=== PATIENT | male | born 1955 ===

== ENCOUNTER 2021-07-06 02:13 | Emergency (ER) | payer MEDICARE, MEDICAID ==
--- NOTE | 2021-07-06 04:53 | ED General ---
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 oz. kg; BMI Method: Progress/Results/Core Measures Suspected Sepsis SIRS Temperature: Pulse: Respiratory Rate: Blood Pressure / Mean: Results/Orders Lab Results Laboratory Tests Test 07/06/21 02:22 Range/Units Influenza Type A (RT-PCR) Not Detected Not Detecte Influenza Type B (RT-PCR) Not Detected Not Detecte SARS-CoV-2 RNA (RT-PCR) Detected H Not Detecte My Orders Orders - CHAVEZ MARROQUIN MD Covid 19 Inhouse Test (07/06/21 02:19) Influenza A And B By Pcr (07/06/21 02:19) Vital Signs/I&O Capillary Refill : Departure Impression Primary Impression: COVID-19 Disposition: 01 HOME, SELF-CARE Condition: Stable Departure-Patient Inst. Decision time for Depature: 04:51 Referrals: [facility] (PCP/Family) Primary Care Physician Patient Instructions: COVID-19 Overview, Sotrovimab FDA Fact Sheet Add. Discharge Instructions: Drink plenty of clear liquids to stay well-hydrated. You may take Tylenol (acetaminophen) and/or ibuprofen if needed for pain or fever. If possible, obtain a pulse oximeter and check your oxygen saturations frequently, especially when feeling short of breath. If you have repeated oxygen saturations less than 92% or any oxygen saturation less than 90%, return to the ER. Maintaining good general health is important during COVID-19. You should take a multivitamin daily. The hospital pharmacy may have monoclonal antibody therapy (Sotrovimab) available for you. If a treatment is available, the pharmacy will contact you to schedule an infusion time at the hospital. Please read the fact sheet about this medication attached. Call with questions or concerns. Return to the ER if you have worsening symptoms. All discharge instructions reviewed with patient and/or family. Voiced understanding. Copy Copies To 1: JIM CLINE JOSHUA T MD Jul 06, 2021 04:53
[2021-07-06 05:11] VITALS: BP 163/89
== END 2021-07-06 05:10 | disposition home or self-care (01) ==
LOC: ER 02:15
DX: U07.1 COVID-19 (principal); I10 Essential (primary) hypertension
CPT/HCPCS: 87636

== ENCOUNTER 2021-10-28 14:25 | Outpatient (RCR) | payer MEDICARE, MEDICAID ==
[2021-10-26 13:05] VITALS: BP 156/94
--- NOTE | 2021-10-26 13:58 | Diagnostic Imaging Report ---
INDICATION: Preop for knee replacement surgery. TIME OF EXAM: 1:49 PM. FINDINGS: The heart size is normal. The right hemidiaphragm is elevated. The lungs appear to be clear. No infiltrates are seen. There is no effusion or pneumothorax. IMPRESSION: Elevated right hemidiaphragm. The study is otherwise unremarkable. Dictated by: Dictated on workstation # [id number]
[2021-10-26 14:09] LABS: BILIRUBIN,URINE NEGATIVE (NEGATIVE); CLARITY,URINE CLEAR; COLOR,URINE YELLOW; GLUCOSE, URINE (UA) NEGATIVE (NEGATIVE); KETONES,URINE NEGATIVE (NEGATIVE); LEUKOCYTE ESTERASE ,URINE NEGATIVE (NEGATIVE); NITRITE,URINE NEGATIVE (NEGATIVE); PH,URINE 5.5 (5-9); PROTEIN,URINE NEGATIVE (NEGATIVE)
[2021-10-26 14:12] LABS: BASOPHILS % (AUTO) 1 % (0-10); EOSINOPHILS # (AUTO) 0.3 10^3/uL (0.0-0.3); EOSINOPHILS % (AUTO) 5 % (0-10); HEMATOCRIT 42 % (40-54); LYMPHOCYTES # (AUTO) 1.5 10^3/uL (1.0-4.0); LYMPHOCYTES % (AUTO) 25 % (12-44); MEAN CORPUSCULAR HEMOGLOBIN 28 pg (25-34); MEAN CORPUSCULAR HGB CONC 34 g/dL (32-36); MEAN CORPUSCULAR VOLUME 84 fL (80-99); MEAN PLATELET VOLUME 9.3 fL (9.0-12.2); MONOCYTES # (AUTO) 0.5 10^3/uL (0.0-1.0); MONOCYTES % (AUTO) 8 % (0-12); NEUTROPHILS # (AUTO) 3.6 10^3/uL (1.8-7.8); NEUTROPHILS % (AUTO) 61 % (42-75); PLATELET COUNT 186 10^3/uL (130-400); WHITE BLOOD COUNT 5.9 10^3/uL (4.3-11.0)
[2021-10-26 14:22] LABS: BACTERIA,URINE NEGATIVE /HPF; WBC,URINE RARE /HPF
[2021-10-26 14:23] LABS: HYALINE CASTS, URINE RARE /LPF
[2021-10-26 14:34] LABS: ERYTHROCYTE SEDIMENTATION RATE 20 MM/HR (0-30)
[2021-10-26 14:35] LABS: ALBUMIN 4.3 GM/DL (3.2-4.5)
[2021-10-26 14:36] LABS: POTASSIUM 4.7 MMOL/L (3.6-5.0)
[2021-10-26 14:37] LABS: CALCIUM 9.8 MG/DL (8.5-10.1)
[2021-10-26 14:38] LABS: TOTAL PROTEIN 7.6 GM/DL (6.4-8.2)
[2021-10-26 14:40] LABS: BILIRUBIN,TOTAL 0.7 MG/DL (0.1-1.0)
[2021-10-26 14:42] LABS: CREATININE SERUM 1.02 MG/DL (0.60-1.30)
[~2021-10-28] VITALS: Ht 160 cm
[~2021-10-28 14:25] MED LIST: LISI20TA26 PO; NAPR-915 PO; PANT40TA52 PO; TMSL.4C PO
[2021-10-28 15:10] LABS: PROTHROMBIN TIME PATIENT 13.6 SEC (12.2-14.7)
[2021-11-06] MEDS ORDERED: OXYC1TAB87 PO (07:01)
== END 2021-11-24 | disposition home or self-care (01) ==
LOC: PREOP 14:25
PROVIDERS: ATTEND Orthopaedic Surgery
DX: Z01.818 Encounter for other preprocedural examination (principal); J98.6 Disorders of diaphragm
CPT/HCPCS: 36415; 71046; 80053; 81000; 82308; 82310; 85025; 85610; 85652; 86850; 86900; 86901; 87081; 93005

== ENCOUNTER 2021-11-04 05:55 | Inpatient (IN) | payer MEDICARE, MEDICAID ==
--- NOTE | 2021-10-26 13:09 | HISTORY AND PHYSICAL ---
DATE OF SERVICE: ADMISSION HISTORY AND PHYSICAL This will be for inpatient admission on 11/04/2021 for left total knee arthroplasty. The patient will require regular inpatient admission due to need for pain management, physical therapy and gait abnormalities. HISTORY OF PRESENT ILLNESS: The patient is a 66-year-old gentleman with longstanding progressive left knee pain. He had previously undergone an injection, which only provided temporary relief of symptoms. Radiographs reveal severe medial and patellofemoral arthrosis. Due to activity limitations and progressive loss of function, the patient has elected to proceed with surgical intervention. REVIEW OF SYSTEMS: No chest pain, no shortness of breath, no dysuria. PAST MEDICAL HISTORY: Hypertension and prostate. PAST SURGICAL HISTORY: None. SOCIAL HISTORY: The patient is retired. The patient denies alcohol, tobacco use. FAMILY HISTORY: Unknown. PRIMARY CARE PROVIDER: Dr. Mcclain. MEDICATIONS: Pantoprazole, Naprosyn, lisinopril. ALLERGIES: No known drug allergies. PHYSICAL EXAMINATION: GENERAL: The patient is well-developed, well-nourished, in no acute distress. HEENT: Normocephalic, atraumatic. Pupils are equal, round and reactive to light. Oropharynx is clear. NECK: Supple, with no lymphadenopathy. LUNGS: Clear to auscultation bilaterally. HEART: Regular rate and rhythm. ABDOMEN: Soft, nontender, nondistended. EXTREMITIES: The patient ambulates with an antalgic gait on the left. He has a slight effusion. There is varus alignment noted. He is tender along his medial femoral condyle, range of motion is 0/2/130. There is no varus valgus laxity. Negative anterior and posterior drawer. IMPRESSION: Severe left knee osteoarthritis. PLAN: Left total knee arthroplasty. The risks, benefits, options, ramifications and recovery have been discussed at length with the patient. He understands and wishes to proceed. Job ID: [id number] DocumentID: [id number] Dictated Date: 10/26/2021 12:50:01 Channel Executive Date: 10/26/2021 13:07:58 Dictated By: KELLY FAIRCHILD MD
[~2021-11-04] VITALS: Ht 160 cm; Wt 75.0 kg
[2021-11-04] VITALS (12 sets, daily range): BP systolic 99–168; BP diastolic 58–92
[2021-11-04] MEDS ORDERED: fentaNYL INJ 100 MCG/2 ML AMP ONE (06:50)
[2021-11-04] MEDS ORDERED: LIDOCAINE PF 2% 5 ML (XYLOCAINE) VIAL ONE (06:50)
[2021-11-04] MEDS ORDERED: MIDAZOLAM 2 MG/2 ML (VERSED) VIAL ONE (06:51)
[2021-11-04] MEDS ORDERED: GLYCOPYRROLATE 0.2 MG/ML (ROBINUL) 2 ML VIAL ONE (07:09)
[2021-11-04] MEDS ORDERED: ROCURONIUM 50 MG/5 ML (ZEMURON) VIAL IV ONE (07:09)
[2021-11-04] MEDS ORDERED: ONDANSETRON 4 MG/2 ML (SDV) Z0FRAN ONE (07:09)
[2021-11-04] MEDS ORDERED: proPOfol 200 MG/20 ML (DIPRIVAN) VIAL IV ONE (07:09)
[2021-11-04] MEDS ORDERED: TRANEXAMIC ACID 100 MG/ML 10 ML INJECTION ONE (07:09)
[2021-11-04] MEDS ORDERED: NEOSTIGMINE 3 MG/3 ML VIAL ONE (07:10)
[2021-11-04] MEDS: LACTATED RINGERS 1,000 ML IV PRN ×2 (07:17→08:10)
[2021-11-04] MEDS ORDERED: ONDANSETRON 4 MG/2 ML (SDV) Z0FRAN IVP PRN ×2 (07:30→09:30)
[2021-11-04] MEDS ORDERED: morphine PCA 100 MG/100 ML BAG IV PRN (07:30)
[2021-11-04] MEDS ORDERED: NALOXONE 0.4 MG/ML 1 ML (NARCAN) VIAL IV PRN (07:30)
[2021-11-04] MEDS ORDERED: INTRA-ARTICULAR IU ONE ×5 (07:30)
[2021-11-04] MEDS ORDERED: diphenhydrAMINE 50 MG/ML INJ (BENADRYL) IVP PRN (07:30)
[2021-11-04] MEDS ORDERED: CEFUROXIME 1,500 MG/NS 50 ML IVPB IV ONE ×2 (07:30)
--- NOTE | 2021-11-04 07:34 | Progress Note-Pre Operative ---
Pre-Operative Progress Note H&P Reviewed The H&P was reviewed, patient examined and no changes noted. Date Seen by Provider: November 04, 2021 Time Seen by Provider: 07:22 Date H&P Reviewed: November 04, 2021 Time H&P Reviewed: 07:11 Pre-Operative Diagnosis: left knee primary osteaoarthritis KELLY FAIRCHILD MD November 04, 2021 07:34
--- NOTE | 2021-11-04 07:35 | Progress Note-Post Operative ---
Post-Operative Progess Note Surgeon (s)/Interpreter Translator (s) Surgeon KELLY FAIRCHILD MD Interpreter Translator: Yfn Romo Pre-Operative Diagnosis left knee primary osteaoarthritis Post-Operative Diagnosis left knee primary osteaoarthritis Procedure & Operative Findings Date of Procedure 11/04/21 Procedure Performed/Findings left total knee arthroplasty Anesthesia Type GETA Estimated Blood Loss Estimated blood loss (mL): minimal Specimens/Packing Specimens Removed none Packing: none KELLY FAIRCHILD MD November 04, 2021 07:35
--- NOTE | 2021-11-04 07:39 | D/C HH Face to Face Order ---
D/C Face to Face Orders Reconcile Patient Problems Problems Reviewed?: Yes Instructions for Patient Via Belkis [place], Patient Instructions/FollowUp: three weeks Physician to follow Patient: three weeks Discharge Diet for Home: Regular Diet Patient Data-Allergies,Ht & Wt Patient Allergies: Coded Allergies: No Known Drug Allergies (Unverified , 10/26/21) Home Health Need/Face to Face Date of Face to Face: November 04, 2021 Clinical Findings: Muscle weakness, Pain with ambulation, Unsteady gait I have seen Pt jitg-km-rtld: Yes Discharged To: Home Diagnosis/Conditions: left total knee arthroplasty Patient is Homebound due to: Muscle weakness, Pain w/ambulation Homebound Status Due to the above stated illness, injury or surgical procedure (medical condition or diagnosis) and associated clinical findings, the patient is homebound because of his/her inability to leave home except with aid of a supportive device and/or person AND leaving the home requires a considerable and taxing effort or is medically contraindicated. Pt req the following assistanc: Walker Home Health Nursing Orders Home Health Services Order: Physical Therapy-Evaluate & Treat DC left knee pedrito and apply steri strips 11/18/21 Home Health Infusion Therapy Line Start Date: November 04, 2021 Therapy Orders Therapy Orders: Physical Therapy, PT to assess for OT Therapy Specific Orders: Eval assistive deivces, Teach enviro modifications/safety, Gait training, Increase strength/endurance, Provider maintenance therapy, Restore ROM Certify Stmt I certify that this patient is under my care and that I, a nurse practitioner or a physician; a licensed nursing assistant working with me, had a face to face encounter that - meets the physician face to face encounter requirements with this patient as dated. KELLY FAIRCHILD MD November 04, 2021 07:39
[2021-11-04] MEDS ORDERED: ROPIVACAINE 5MG/ML 30ML VIAL ONE (08:52)
[2021-11-04] MEDS ORDERED: HYDROmorphone 2 MG/ML VIAL (DILAUDID) ONE (08:57)
[2021-11-04] MEDS ORDERED: SEVOFLURANE (ULTANE) 15 ML INHAL SOLN ONE (09:22)
[2021-11-04] MEDS ORDERED: morphine INJ 10 MG/ML 1ML (SYR OR VIAL) IVP ONE (09:30)
[2021-11-04] MEDS ORDERED: HYDROmorphone 2 MG/ML VIAL (DILAUDID) IV ONE (09:30)
--- NOTE | 2021-11-04 09:49 | Progress Note ---
Standard Progress Note Progress Notes/Assess & Plan Date Seen by a Provider: November 04, 2021 Time Seen by a Provider: 09:44 Progress/Assessment & Plan no complaints radiographs--HW well positioned without fracture LLE--2 plus DP pulse with brisk cap refill s/p LTKA mobilize as able KELLY FAIRCHILD MD November 04, 2021 09:49
[2021-11-04] MEDS: SENNA W/DOCUSATE (SENOKOT S) TABLET PO SCH ×2 (11:15→19:32)
[2021-11-04] MEDS: NS IV 1000 ML 1,000 ML IV SCH (11:15)
--- NOTE | 2021-11-04 12:14 | Diagnostic Imaging Report ---
INDICATION: Pain, postsurgical follow-up. COMPARISON: None available. TECHNIQUE: Two radiographs of the left knee dated 11/04/2021. FINDINGS: Recent placement of a left total knee arthroplasty with postsurgical subcutaneous emphysema and surgical skin clips in place. No evidence of immediate hardware complication. No acute fracture or dislocation. No destructive osseous process. No suspicious radiopaque foreign body. IMPRESSION: Recent placement of a left total knee arthroplasty without evidence of immediate hardware complication or suspicious radiopaque foreign body. Dictated by: Dictated on workstation # [id number]
--- NOTE | 2021-11-04 14:14 | OPERATIVE REPORT ---
DATE OF SERVICE: 11/04/2021 PREOPERATIVE DIAGNOSIS: Left knee primary osteoarthritis. POSTOPERATIVE DIAGNOSIS: Left knee primary osteoarthritis. PROCEDURE: Left total knee arthroplasty. SURGEON: Corey Fairchild MD SPECIAL EDUCATION TEACHING ASSISTANT: Yfn Romo, who assisted throughout the procedure and closed the incision. ANESTHESIA: General endotracheal by Dr. Chou. TOURNIQUET TIME: Approximately 60 minutes at 300 mmHg. ESTIMATED BLOOD LOSS: Minimal. DRAINS: None. COMPLICATIONS: None. POSTOPERATIVE PLAN: Routine total knee protocol. The patient was transferred to the recovery room awake and stable condition. MATERIALS: Microport cemented size 3 femur, cemented size 3 tibia with a 10 mm insert and cemented size 29 patellar button. STATEMENT OF MEDICAL NECESSITY: The patient is a 66-year-old gentleman with longstanding progressive left knee pain. Radiographs revealed severe medial and patellofemoral arthrosis. He has undergone treatment with injections, anti-inflammatories and rest without relief. Due to functional impairment and failure to improve with conservative measures, the patient elected to proceed with surgical intervention. DESCRIPTION OF PROCEDURE: After risks and benefits of procedure were discussed and questions were answered, an informed consent was signed and placed on chart, the operative site was confirmed in the preoperative holding area initialed by the surgeon. The patient was then transferred to the operating room. After adequate levels of general endotracheal anesthetic were obtained, a timeout was called, confirming the operative site. The left lower extremity was prepped and draped in the usual sterile fashion with the leg elevated and the knee flexed, and tourniquet was inflated to 300 mmHg. Standard anterior approach was utilized. Hemostasis was obtained with cautery. Medial parapatellar arthrotomy was performed leaving 1 cm cuff on the patella for later reattachment. Portion of fat pad was resected. The ACL was resected. The intramedullary guide was passed into the femoral canal. The distal cutting block was placed. Distal cut was made, the femur sized to a size 3. The 3 cutting block was placed parallel to the epicondylar axis and cuts were made from posterior to anterior. The subperiosteal release was then performed and posterior distal femur being careful to stay on the bony surface. The intramedullary guide was then passed into the tibia. The cutting block was placed. The drop nisreen transected the intermalleolar axis. The cut was made. The three baseplate was placed and had excellent coverage. Drop nisreen transected the intermalleolar axis. This was then prepared with a drill and keel punch. The femoral trial was placed, and trochlear cut was made. The patella was then prepared by resecting 10 mm off the undersurface. The peg guide was placed, and the peg holes were drilled. The 29 trial button was placed. Knee was taken through range of motion. Full extension was easily obtained, 130 degrees of flexion was obtained with gravity. The patella tracked well. There was no anterior/posterior or medial/lateral laxity in flexion or extension. The trials were removed. The joint was irrigated with pulse lavage. The bone ends were irrigated and dried. The periarticular block was placed in the posterior capsule, medial and lateral retinaculum extensor mechanism, subcutaneous tissues. Bone ends were further irrigated and dried. The tibial baseplate was cemented into position. Excessive cement was removed, the superior surface was irrigated and dried and the polyethylene insert was placed. Distal femur was irrigated and dried. The femoral prosthesis was cemented into position. Excessive cement was removed. The knee was brought out into full extension until cement had cured. The undersurface of the patella, irrigated and dried and the patellar button was cemented into position. Excessive cement was removed. Once the cement had cured, the knee was taken through range of motion. Full extension was easily obtained, 130 degrees of flexion was obtained with gravity. The patella tracked well. There was no anterior/posterior or medial/lateral laxity in flexion or extension. The joint was further irrigated with pulse lavage. Arthrotomy was closed with #2 Tevdek in jmkmxb-cm-fvdug interrupted fashion. The knee was flexed. The repair was stable, and the patella tracked well. Subcutaneous tissues were irrigated with pulse lavage, using a total of 6 liters throughout the procedure. A 0 Vicryl was used to deep subcutaneous layer, 2-0 Vicryl for the superficial subcutaneous layer, pedrito used on the skin. A soft dressing was applied. The patient was transferred to the recovery room awake and in stable condition. Job ID: [id number] DocumentID: [id number] Dictated Date: 11/04/2021 09:10:58 Payroll Lead Date: 11/04/2021 14:13:56 Dictated By: COREY FAIRCHILD MD
--- NOTE | 2021-11-04 14:30 | Physical Therapy Evaluation ---
PT Evaluation-General Medical Diagnosis Admission Date November 04, 2021 at 05:55 Medical Diagnosis: s/p L knee Arthroplasty Onset Date: November 04, 2021 Therapy Diagnosis Therapy Diagnosis: Impaired mobility, strength Weight Bear Status Right Lower Extremity: Right Full Weight Bearing Left Lower Extremity: Left Weight Bearing/Tolerated Referral Physician: Demetrius Reason for Referral: Evaluation/Treatment Medical History Pertinent Medical History: HTN Additional Medical History Hypertension and prostate. Reviewed History: Yes Social History unable to assess due to communication barrier. Prior Prior Level of Function SCALE: Activities may be completed with or without assistive devices. 2-Gfszbmspbx-nxddtzy completes the activity by him/herself with no assistance from a helper. 5-Set-up or Clean-up Assistance-helper sets up or cleans up; patient completes activity. [place] assists only prior to or following the activity. 4-Supervision or Touching Assistance-helper provides verbal cues and/or touching/steadying and/or contact guard assistance as patient completes activity. Assistance may be provided throughout the activity or intermittently. 3-Partial/Moderate Assistance-helper does LESS THAN HALF the effort. [place] lifts, holds or supports trunk or limbs, but provides less than half the effort. 2-Substantial/Maximal Assistance-helper does MORE THAN HALF the effort. [place] lifts or holds trunk or limbs and provides more than half the effort. 5-Qaqwllkxu-ufnhmg does ALL the effort. Patient does none of the effort to com plete the activity. Or, the assistance of 2 or more helpers is required for the patient to complete the activity. If activity was not attempted, code reason: 7-Patient Refused. 9-Not Applicable-not attempted and the patient did not perform the activity before the current illness, exacerbation or injury. 10-Not Attempted due to Environmental Limitations-(lack of equipment, weather restraints, etc.). 88-Not Attempted due to Medical Conditions or Safety Concerns. unable to assess due to communication barrier PT Evaluation-Current Subjective Patient was in bed upon entering. Patient explained that his japanese is not very good, so PT used demonstrations, japanese to best ability, and google translate to communicate. Pain Numeric Pain Scale: 0-No Pain Pt/Family Goals To be independent at home. Objective Patient Orientation: Person, Place, Situation ROM/Strength ROM Lower Extremities Knee flexion 50d. knee extension lacking about 5-10d. Hip and ankle ROM appear WFL Integumentary/Posture Bowel Incontinence: No Bladder Incontinence: No Sensory Vision: Functional Hearing: Functional Sensation Right Lower Extremit: Intact Sensation Left Lower Extremity: Intact Transfers Roll Left to Right (QC): 6 Sit to Lying (QC): 5 Lying to Sitting/Side of Bed(Q: 5 Sit to Stand (QC): 4 (CGA) Chair/Ale-lm-Zccva Xfer(QC): 4 (CGA) Toilet Transfer (QC): 4 (CGA) Gait Does the Patient Walk?: Yes Mode of Locomotion: Walk Anticipated Mode of Locomotion: Walk Walk 10 feet (QC): 4 (CGA) Distance: 20' Gait Assistive Device: FWW Comments/Gait Description Relatively normal gait pattern Balance Sitting Static: Normal Sitting Dynamic: Normal Standing Static: Good Standing Dynamic: Good Treatment ambulation, transfer, toileting, LE strengthening (quad set, heel slides, ankle pumps, SAQ, SLR) 10 reps each. Assessment/Needs Patient did very well today, showed decent ROM with knee, but is still lacking f lexion and extension. Patient states he is in no pain at the moment and was able to tolerate standing and weight bearing on L LE without difficulty. Patient was independent with bed mobility, and just needs help setting up to go from sit<- >lying. Patient was able to walk to bathroom and transfer onto toilet with CGA. Patient was left in bathroom with instructions to pull red cord for assistance when finished. 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 Residential Goals PT Residential Goals Time Frame: November 11, 2021 Roll Left & Right (QC): 6 Sit to Lying (QC): 6 Lying-Sitting on Side/Bed(QC): 6 Sit to Stand (QC): 6 Chair/Nli-db-Xektf Xfer(QC): 6 Toilet Transfer (QC): 6 Walk 10 feet (QC): 6 Walk 50ft with 2 Turns (QC): 6 Walk 150 ft (QC): 6 PT Plan Problem List Problem List: Activity Tolerance, Functional Strength, Safety, Balance, Gait, Transfer, Bed Mobility, ROM Treatment/Plan Treatment Plan: Continue Plan of Care Treatment Plan: Bed Mobility, Education, Functional Activity George, Functional Strength, Gait, Safety, Therapeutic Exercise, Transfers Treatment Duration: November 11, 2021 Frequency: 11 times per week Estimated Hrs Per Day: .25 hour per day Patient and/or Family Agrees t: Yes Safety Risks/Education Patient Education: Gait Training, Transfer Techniques, Reviewed Precautions, Correct Positioning, Safety Issues Teaching Recipient: Patient Teaching Methods: Demonstration, Discussion Response to Teaching: Verbalize Understanding, Return Demonstration, Reinforcement Needed Discharge Recommendations Plan To work on strengthening, ROM, transfers, ambulation, to return to independence at home. Therapy Discharge Recommendati: Home & Family, Post Acute PT Time/GCodes Time In: 1307 Time Out: 1330 Total Billed Treatment Time: 23 Total Billed Treatment 1 visit LUCY 10' FA 13' JOVANI JERONIMO PT November 04, 2021 14:30
[2021-11-04] MEDS: CEFUROXIME INJECTION 750 MG in NS (IVPB) 50 ML IV SCH (16:09)
[2021-11-04] MEDS: TAMSULOSIN 0.4 MG (FLOMAX) CAP PO SCH (19:52)
[2021-11-05] VITALS: BP 147/84
[2021-11-05] MEDS: NS IV 1000 ML 1,000 ML IV SCH ×2 (00:06→08:02)
[2021-11-05] MEDS: CEFUROXIME INJECTION 750 MG in NS (IVPB) 50 ML IV SCH (00:06)
[2021-11-05 04:28] VITALS: BP 135/77
[2021-11-05 05:47] LABS: HEMOGLOBIN 12.6 g/dL (13.3-17.7)
[2021-11-05] MEDS: MULTIVIT W/MINERALS TAB (THERAGRAN M) PO SCH (06:32)
[2021-11-05 07:55] VITALS: BP 164/82
[2021-11-05] MEDS: lisINopril 20 MG (PRINIVIL) TABLET PO SCH (08:01)
[2021-11-05] MEDS: oxyCODONE/APAP 5/325MG (PERCOCET 5) TABLET PO PRN ×3 (08:01→13:38)
[2021-11-05] MEDS: SENNA W/DOCUSATE (SENOKOT S) TABLET PO SCH ×2 (08:02→21:56)
[2021-11-05] MEDS: ENOXAPARIN INJECTION 30 MG/0.3 ML SYR SC SCH ×2 (08:02→21:56)
--- NOTE | 2021-11-05 08:03 | Progress Note ---
Standard Progress Note Progress Notes/Assess & Plan Date Seen by a Provider: November 05, 2021 Time Seen by a Provider: 08:02 Progress/Assessment & Plan no complaints radiographs--HW well positioned without fracture LLE--2 plus DP pulse with brisk cap refill s/p LTKA mobilize as able Final Diagnosis no complaints Vital Signs Date Time Temp Pulse Resp B/P (MAP) Pulse Ox O2 Delivery O2 Flow Rate FiO2 11/05/21 07:55 36.8 74 20 164/82 (109) 98 Room Air 11/05/21 04:28 36.8 79 18 135/77 (96) 97 Room Air 11/05/21 00:00 36.6 98 18 147/84 (105) 99 Room Air 11/04/21 21:00 Room Air 11/04/21 19:44 36.3 62 18 168/80 (109) 95 Room Air 11/04/21 15:33 36.3 62 18 137/71 (93) 96 Room Air 11/04/21 12:45 Room Air 11/04/21 11:19 90 Room Air 0.00 11/04/21 11:12 35.8 72 18 131/74 (93) 90 Room Air 11/04/21 10:42 35.5 84 16 126/65 (85) 93 Room Air 11/04/21 10:00 36.7 16 132/71 (91) 96 Room Air 11/04/21 10:00 Room Air 11/04/21 09:50 Room Air 11/04/21 09:50 16 129/68 (88) 97 Room Air 11/04/21 09:40 14 126/71 (89) 98 OxyMask 2 11/04/21 09:40 OxyMask 2 11/04/21 09:30 14 115/64 (81) 98 OxyMask 10 11/04/21 09:30 OxyMask 6 11/04/21 09:20 14 110/61 (77) 98 OxyMask 10 11/04/21 09:20 OxyMask 6 11/04/21 09:08 OxyMask 10 11/04/21 09:08 37.5 12 99/58 (72) 97 OxyMask 10 I & O 11/05/21 07:00 Intake Total 2050 ml Output Total 1025 ml Balance 1025 ml Laboratory Tests Test 11/05/21 05:30 Range/Units Hemoglobin 12.6 L 13.3-17.7 g/dL Hematocrit 37 L 40-54 % LLE-dressing intact. Intact DF and PF of toes and ankle sensation intact throughout no calf tenderness s/p LTKA PT/OT KELLY FAIRCHILD MD November 05, 2021 08:03
[2021-11-05] MEDS ORDERED: lisINopril 40 MG (PRINIVIL) TABLET PO SCH (09:00)
--- NOTE | 2021-11-05 09:50 | Physical Therapy Daily Note ---
PT Daily Note-Current Subjective Patient agrees to PT. Mental Status Patient Orientation: Normal For Age Attachments: IV Transfers SCALE: Activities may be completed with or without assistive devices. 8-Ouqyvlstda-ljuwkyr completes the activity by him/herself with no assistance from a helper. 5-Set-up or Clean-up Assistance-helper sets up or cleans up; patient completes activity. [place] assists only prior to or following the activity. 4-Supervision or Touching Assistance-helper provides verbal cues and/or touching/steadying and/or contact guard assistance as patient completes activity. Assistance may be provided throughout the activity or intermittently. 3-Partial/Moderate Assistance-helper does LESS THAN HALF the effort. [place] lifts, holds or supports trunk or limbs, but provides less than half the effort. 2-Substantial/Maximal Assistance-helper does MORE THAN HALF the effort. [place] lifts or holds trunk or limbs and provides more than half the effort. 4-Wwfcvpril-cifcwx does ALL the effort. Patient does none of the effort to complete the activity. Or, the assistance of 2 or more helpers is required for the patient to complete the activity. If activity was not attempted, code reason: 7-Patient Refused. 9-Not Applicable-not attempted and the patient did not perform the activity before the current illness, exacerbation or injury. 10-Not Attempted due to Environmental Limitations-(lack of equipment, weather restraints, etc.). 88-Not Attempted due to Medical Conditions or Safety Concerns. Lying to Sitting/Side of Bed(Q: 6 Sit to Stand (QC): 4 Chair/Dsp-sh-Ukxti Xfer(QC): 4 Weight Bearing Right Lower Extremity: Right Full Weight Bearing Left Lower Extremity: Left Weight Bearing/Tolerated Gait Training Distance: 200' Walk 10 feet (QC): 4 Walk 50 ft with 2 Turns(QC): 4 Walk 150 ft (QC): 4 Gait Assistive Device: FWW reciprocal pattern/slightly antalgic Exercises Supine Ex: Ankle pumps, Quad Set, Heel Slides, Straight leg raise Supine Reps: 15 Seated Therapy Exercises: Long arc quads Seated Reps: 15 Assessment Patient tolerated treatment well and is up in recliner with needs met. Increase activity as tolerated by patient. PT Drapery Inspector Goals Drapery Inspector Goals PT Group Home Goals Time Frame: November 11, 2021 Roll Left & Right (QC): 6 Sit to Lying (QC): 6 Lying-Sitting on Side/Bed(QC): 6 Sit to Stand (QC): 6 Chair/Szh-mr-Jprqj Xfer(QC): 6 Toilet Transfer (QC): 6 Walk 10 feet (QC): 6 Walk 50ft with 2 Turns (QC): 6 Walk 150 ft (QC): 6 PT Plan Treatment/Plan Treatment Plan: Continue Plan of Care Treatment Plan: Bed Mobility, Education, Functional Activity Geroge, Functional Strength, Gait, Safety, Therapeutic Exercise, Transfers Treatment Duration: November 11, 2021 Frequency: 11 times per week Estimated Hrs Per Day: .25 hour per day Patient and/or Family Agrees t: Yes Time/GCodes Time In: 859 Time Out: 922 Total Billed Treatment Time: 23 Total Billed Treatment 1 visit EX 13 min GT 10 min [place] [facility] PT November 05, 2021 09:50
[2021-11-05] MEDS ORDERED: MILK OF MAGNESIA 400 MG/5 ML 30 ML UDC PO NR (11:00)
[2021-11-05] MEDS ORDERED: DOCUSATE SODIUM 100 MG (COLACE) CAP PO NR (11:00)
[2021-11-05] MEDS ORDERED: polyethylene glycoL POWDER 17 GM (MIRALAX) PACK PO PRN (11:00)
--- NOTE | 2021-11-05 11:07 | Consultation - Hospitalist ---
HPI History of Present Illness: HPI/Chief Complaint Issa Kimble is a 66 year old male with PMH osteoarthritis, HTN, BPH, who presented for scheduled left total knee arthroplasty. The hospitalist service has been consulted for medical co-management. He is doing well post-operatively. He has been up and working with physical therapy. He has been urinating well but reports constipation. He denies pain. He has no other complaints or concerns. Source: patient Exam Limitations: no limitations Date Seen 11/05/21 Attending Physician Corey Duncan MD [facility] [place] Referring Physician Date of Admission November 04, 2021 at 05:55 Home Medications & Allergies Home Medications Reviewed patient Home Medication Reconciliation performed by pharmacy medication reconciliations copier field service technician and/or nursing. Patients Allergies have been reviewed. Allergies Allergies Coded Allergies No Known Drug Allergies (Unverified10/26/21) Past Upbmxdk-Vioiwk-Vzpwrm Hx Patient Social History Tobacco Use?: No Smoking Status: Never a Smoker Substance use?: No Alcohol Use?: No Pt feels they are or have been: No Immunizations Up To Date First/Initial COVID19 Vaccinat: 2 VACCINES PLUS BOOSTER Second COVID19 Vaccination Ravindra: 2 VACCINES PLUS BOOSTER Seasonal Allergies Seasonal Allergies: No Current Status Advance Directives: No Communicates: Verbally Primary Language: FROM RUBINA Preferred Spoken Language: FROM RUBINA Is interpretation needed?: Yes Past Medical History Hypertension Prostate Problems Blood Disorders: No Family Medical History No Pertinent Family Hx Review of Systems Constitutional: no symptoms reported EENTM: no symptoms reported Respiratory: no symptoms reported Cardiovascular: no symptoms reported Gastrointestinal: constipation Genitourinary: no symptoms reported Musculoskeletal: no symptoms reported Skin: no symptoms reported Psychiatric/Neurological: No Symptoms Reported Physical Exam Physical Exam Vital Signs Vital Signs - First Documented 11/04/21 06:35 Temp 36.0 Pulse 63 Resp 18 B/P (MAP) 149/92 (111) Pulse Ox 98 O2 Delivery Room Air Capillary Refill : Less Than 3 Seconds Height, Weight, BMI Height: '" Weight: lbs. oz. kg; 29.29 BMI Method: General Appearance: No Apparent Distress, WD/WN HEENT: PERRL/EOMI, Pharynx Normal Neck: Normal Inspection, Supple Respiratory: Lungs Clear, Normal Breath Sounds, No Respiratory Distress Cardiovascular: Regular Rate, Rhythm, No Edema, No Murmur Gastrointestinal: Normal Bowel Sounds, Non Tender, Soft Extremity: Normal Inspection, Non Tender, No Pedal Edema Neurologic/Psychiatric: Alert, Oriented x3, No Motor/Sensory Deficits, Normal Mood/Affect Skin: Normal Color, Warm/Dry Results Results/Procedures Labs Laboratory Tests 11/05/21 05:30 Patient resulted labs reviewed. Imaging: Reviewed Imaging Report Assessment/Plan Assessment and Plan Assess & Plan/Chief Complaint Osteoarthritis Total knee arthroplasty Orthopedic surgery primary Pain regimen Bowel regimen Add scheduled Colace Add Miralax as needed Milk of Magnesia once Incentive spirometry PT/OT BPH Flomax Urology following HTN Lisinopril DVT prophylaxis: Lovenox Diagnosis/Problems Diagnosis/Problems (1) Osteoarthritis of left knee Status: Acute Qualifiers: Osteoarthritis type: primary Qualified Codes: M17.12 - Unilateral primary osteoarthritis, left knee (2) S/P total knee arthroplasty Status: Acute Qualifiers: Laterality: left Qualified Codes: Z96.652 - Presence of left artificial knee joint (3) HTN (hypertension) Status: Chronic (4) BPH (benign prostatic hyperplasia) Status: Chronic ZULEMA TONEY MD November 05, 2021 11:07
[2021-11-05 11:49] VITALS: BP 177/85
--- NOTE | 2021-11-05 12:52 | Anesthesia-General Post-Op ---
General Patient Condition Mental Status/LOC: Same as Preop Cardiovascular: Satisfactory Nausea/Vomiting: Absent Respiratory: Satisfactory Pain: Controlled Complications: Absent Post Op Complications Complications None Follow Up Care/Instructions Patient Instructions None needed. Anesthesia/Patient Condition Patient Condition Patient is doing well, C/O minimal pain to knee which is to be expected, stable vital signs, no apparent adverse anesthesia problems. FINN BARBER DO November 05, 2021 12:52
--- NOTE | 2021-11-05 13:01 | Occupational Therapy Eval ---
OT Evaluation-General/PLF Medical Diagnosis Admission Date November 04, 2021 at 05:55 Medical Diagnosis: s/p L knee Arthroplasty Onset Date: November 04, 2021 Therapy Diagnosis Therapy Diagnosis: reduced adls status Precautions Precautions/Isolations: Fall Prevention, Standard Precautions Referral Physician: Demetrius Moore Reason: Evaluation/Treatment Medical History Pertinent Medical History: HTN Current History Post op day 1, S/p L TKA Unable to get PLOF secondary to language barrier. Pt able to understand very little Tu[place]uan. Reviewed History: Yes Social History Current Living Status: Children (son) ADL-Prior Level of Function SCALE: Activities may be completed with or without assistive devices. 8-Fjmnskrmvb-lshaopj completes the activity by him/herself with no assistance from a helper. 5-Set-up or Clean-up Assistance-helper sets up or cleans up; patient completes activity. [place] assists only prior to or following the activity. 4-Supervision or Touching Assistance-helper provides verbal cues and/or touching/steadying and/or contact guard assistance as patient completes activity. Assistance may be provided throughout the activity or intermittently. 3-Partial/Moderate Assistance-helper does LESS THAN HALF the effort. [place] lifts, holds or supports trunk or limbs, but provides less than half the effort. 2-Substantial/Maximal Assistance-helper does MORE THAN HALF the effort. [place] lifts or holds trunk or limbs and provides more than half the effort. 7-Chnhhpzqv-vluski does ALL the effort. Patient does none of the effort to complete the activity. Or, the assistance of 2 or more helpers is required for the patient to complete the activity. If activity was not attempted, code reason: 7-Patient Refused. 9-Not Applicable-not attempted and the patient did not perform the activity befo re the current illness, exacerbation or injury. 10-Not Attempted due to Environmental Limitations-(lack of equipment, weather re straints, etc.). 88-Not Attempted due to Medical Conditions or Safety Concerns. Self Care: Unknown Functional Cognition: Unknown OT Current Status Subjective Pt verbalizes "little pain" and points to L knee. Appearance Pt returned to supine in bed, all needs within reach. Mental Status/Objective Patient Orientation: Person, Unable to Assess Attachments: IV Current Upper Extremity ROM WNL Upper Extremity Strength Unable to understand directions ADL-Treatment Eating (QC): 6 (per clinical judgment) Oral Hygiene (QC): 5 (per clinical judgment) On/Off Footwear (QC): 3 Supine<>sit: Indep. Good sitting balance at EOB. Pt able to don/doff R sock and Doff L sock. Due to increase in pain, assist needed to don L sock. Sit<>stand: SBA. Pt ambulated around room with CGA and use of walker. He denies need to use toilet and shakes head "no" to sit in chair. Anticipate close supervision/cga needed for clothing management pre/post toileting at this time. Education OT Patient Education: Purpose of tx/functional activities, Safety issues, Transfer techniques Teaching Recipient: Patient Teaching Methods: Demonstration, Discussion Response to Teaching: Verbalize Understanding (Pt able to understand only a small amount of grenadian. Is able to follow simple visual cues ) OT Sanitation Lead Goals Sanitation Lead Goals Time Frame: November 12, 2021 Toileting Hygiene (QC): 4 Shower/Bathe Self (QC): 4 Upper Body Dressing (QC): 5 Lower Body Dressing (QC): 4 On/Off Footwear (QC): 4 1=Demonstrate adherence to instructed precautions during ADL tasks. 2=Patient will verbalize/demonstrate understanding of assistive devices/modifications for ADL. 3=Patient will improve strength/tolerance for activity to enable patient to perform ADL's. OT Education/Plan Problem List/Assessment Assessment: Decreased Activ Tolerance, Impaired Funct Balance, Impaired I ADL's, Impaired Self-Care Skills Discharge Recommendations Plan/Recommendations: Continue POC Therapy Discharge Recommendati: Post Acute OT (Home with home health pending progress) Treatment Plan/Plan of Care Treatment,Training & Education: Yes Patient would benefit from OT for education, treatment and training to promote independence in ADL's, mobility, safety and/or upper extremity function for ADL's. Plan of Care: ADL Retraining, Functional Mobility, Group Exercise/Act as Ind, UE Funct Exercise/Act Treatment Duration: November 12, 2021 Frequency: 3 times per week (3-5x/week) Estimated Hrs Per Day: .25 hour per day Rehab Potential: Good Time/GCodes Start Time: 11:56 Stop Time: 12:08 Total Time Billed (hr/min): 12 Billed Treatment Time 1 visit Verónica Phillips OT November 05, 2021 13:01
--- NOTE | 2021-11-05 14:30 | Physical Therapy Daily Note ---
PT Daily Note-Current Subjective Patient agrees to PT. Transfers SCALE: Activities may be completed with or without assistive devices. 4-Yybypikzum-zdzelpr completes the activity by him/herself with no assistance from a helper. 5-Set-up or Clean-up Assistance-helper sets up or cleans up; patient completes activity. [place] assists only prior to or following the activity. 4-Supervision or Touching Assistance-helper provides verbal cues and/or touching/steadying and/or contact guard assistance as patient completes activity. Assistance may be provided throughout the activity or intermittently. 3-Partial/Moderate Assistance-helper does LESS THAN HALF the effort. [place] lifts, holds or supports trunk or limbs, but provides less than half the effort. 2-Substantial/Maximal Assistance-helper does MORE THAN HALF the effort. [place] lifts or holds trunk or limbs and provides more than half the effort. 4-Swemecnvh-fankoq does ALL the effort. Patient does none of the effort to complete the activity. Or, the assistance of 2 or more helpers is required for the patient to complete the activity. If activity was not attempted, code reason: 7-Patient Refused. 9-Not Applicable-not attempted and the patient did not perform the activity before the current illness, exacerbation or injury. 10-Not Attempted due to Environmental Limitations-(lack of equipment, weather restraints, etc.). 88-Not Attempted due to Medical Conditions or Safety Concerns. Sit to Lying (QC): 6 Lying to Sitting/Side of Bed(Q: 6 Sit to Stand (QC): 6 Weight Bearing Right Lower Extremity: Right Full Weight Bearing Left Lower Extremity: Left Weight Bearing/Tolerated Gait Training Distance: 275' Walk 10 feet (QC): 4 Walk 50 ft with 2 Turns(QC): 4 Walk 150 ft (QC): 4 Gait Assistive Device: FWW steady, reciprocal pattern Exercises Supine Ex: Ankle pumps, Quad Set, Heel Slides, Straight leg raise Supine Reps: 15 Seated Therapy Exercises: Long arc quads Seated Reps: 15 Assessment Patient progressing with treatment plan and will dismiss to home in a.m. AROM left knee flexion/extension 0-94 degrees. PT Fci Goals Fci Goals PT Fci Goals Time Frame: November 11, 2021 Roll Left & Right (QC): 6 Sit to Lying (QC): 6 Lying-Sitting on Side/Bed(QC): 6 Sit to Stand (QC): 6 Chair/Qoj-kx-Owrnn Xfer(QC): 6 Toilet Transfer (QC): 6 Walk 10 feet (QC): 6 Walk 50ft with 2 Turns (QC): 6 Walk 150 ft (QC): 6 PT Plan Treatment/Plan Treatment Plan: Continue Plan of Care Treatment Plan: Bed Mobility, Education, Functional Activity George, Functional Strength, Gait, Safety, Therapeutic Exercise, Transfers Treatment Duration: November 11, 2021 Frequency: 11 times per week Estimated Hrs Per Day: .25 hour per day Patient and/or Family Agrees t: Yes Time/GCodes Time In: 1300 Time Out: 1314 Total Billed Treatment Time: 14 Total Billed Treatment 1 visit FA 14 min [place] BARR PT November 05, 2021 14:30
[2021-11-05 15:41] VITALS: BP 161/78
[2021-11-05] MEDS: TAMSULOSIN 0.4 MG (FLOMAX) CAP PO SCH (17:43)
[2021-11-05 20:00] VITALS: BP 160/95
[2021-11-05] MEDS: DOCUSATE SODIUM 100 MG (COLACE) CAP PO SCH (21:56)
--- NOTE | 2021-11-05 22:56 | CONSULTATION REPORT ---
DATE OF SERVICE: 11/05/2021 ATTENDING PHYSICIAN: Dr. Duncan and Dr. Mcclain. SUMMARY: A 66-year-old man, who underwent a left knee total arthroplasty on 04/13, has been having trouble voiding and retention, necessitating straight catheterization. He is on Flomax 0.4 mg daily initiated originally by Dr. Mcclain because of BPH symptoms in the past, but no history of retention before. He is on medication for pain. He is ambulating well and I reviewed his records. IMPRESSION: Benign prostatic hypertrophy with urinary retention, possible neurogenic bladder. PLAN: We will increase the Flomax to twice a day. If unable to void, we will do straight catheterization and reinsert the catheter on the further attempt and then tomorrow, we will decide on plan to dismiss and follow up plan. This was fully explained to the patient through his son translating. Job ID: [id number] DocumentID: [id number] Dictated Date: 11/05/2021 17:38:35 Assistant Press Operator Date: 11/05/2021 22:55:36 Dictated By: LETTY QUIROGA MD
[2021-11-06 00:20] VITALS: BP 155/83
[2021-11-06 05:26] LABS: HEMOGLOBIN 10.8 g/dL (13.3-17.7)
[2021-11-06] MEDS: MULTIVIT W/MINERALS TAB (THERAGRAN M) PO SCH (05:42)
[2021-11-06 06:00] LABS: BASOPHILS % (AUTO) 0 % (0-10); EOSINOPHILS # (AUTO) 0.1 10^3/uL (0.0-0.3); EOSINOPHILS % (AUTO) 1 % (0-10); HEMATOCRIT 32 % (40-54); HEMOGLOBIN 11.1 g/dL (13.3-17.7); LYMPHOCYTES # (AUTO) 0.9 10^3/uL (1.0-4.0); LYMPHOCYTES % (AUTO) 12 % (12-44); MEAN CORPUSCULAR HEMOGLOBIN 29 pg (25-34); MEAN CORPUSCULAR HGB CONC 35 g/dL (32-36); MEAN CORPUSCULAR VOLUME 83 fL (80-99); MEAN PLATELET VOLUME 9.3 fL (9.0-12.2); MONOCYTES # (AUTO) 0.7 10^3/uL (0.0-1.0); MONOCYTES % (AUTO) 8 % (0-12); NEUTROPHILS # (AUTO) 6.4 10^3/uL (1.8-7.8); NEUTROPHILS % (AUTO) 79 % (42-75); PLATELET COUNT 141 10^3/uL (130-400); WHITE BLOOD COUNT 8.2 10^3/uL (4.3-11.0)
[2021-11-06 06:03] LABS: ALBUMIN 3.7 GM/DL (3.2-4.5); POTASSIUM 4.3 MMOL/L (3.6-5.0)
[2021-11-06 06:04] LABS: CALCIUM 9.2 MG/DL (8.5-10.1)
[2021-11-06 06:05] LABS: TOTAL PROTEIN 6.9 GM/DL (6.4-8.2)
[2021-11-06 06:07] LABS: BILIRUBIN,TOTAL 0.2 MG/DL (0.1-1.0)
[2021-11-06 06:09] LABS: CREATININE SERUM 1.12 MG/DL (0.60-1.30)
[2021-11-06] MEDS ORDERED: morphine INJ 4 MG/ML 1 ML (VIAL/SYRINGE) IVP PRN (07:00)
[2021-11-06] MEDS ORDERED: OXYC1TAB87 PO (07:01)
--- NOTE | 2021-11-06 07:01 | Progress Note ---
Standard Progress Note Progress Notes/Assess & Plan Date Seen by a Provider: November 06, 2021 Time Seen by a Provider: 06:59 Progress/Assessment & Plan no complaints radiographs--HW well positioned without fracture LLE--2 plus DP pulse with brisk cap refill s/p LTKA mobilize as able Final Diagnosis byrd in place reports mild knee pain Vital Signs Date Time Temp Pulse Resp B/P (MAP) Pulse Ox O2 Delivery O2 Flow Rate FiO2 11/06/21 06:45 18 11/06/21 00:20 37.0 74 16 155/83 (107) 96 Room Air 11/05/21 21:00 Room Air 11/05/21 20:00 35.6 86 18 160/95 (116) 97 Room Air 11/05/21 18:10 18 11/05/21 15:41 35.9 84 18 161/78 (105) 94 Room Air 11/05/21 11:49 37.0 72 20 177/85 (115) 99 Room Air 11/05/21 08:20 Room Air 11/05/21 07:55 36.8 74 20 164/82 (109) 98 Room Air I & O 11/06/21 07:00 Intake Total 860 ml Output Total 2605 ml Balance -1745 ml Laboratory Tests Test 11/06/21 04:55 Range/Units White Blood Count 8.2 4.3-11.0 10^3/uL Red Blood Count 3.84 L 4.30-5.52 10^6/uL Hemoglobin 11.1 L 13.3-17.7 g/dL Hematocrit 32 L 40-54 % Mean Corpuscular Volume 83 80-99 fL Mean Corpuscular Hemoglobin 29 25-34 pg Mean Corpuscular Hemoglobin Concent 35 32-36 g/dL Red Cell Distribution Width 13.5 10.0-14.5 % Platelet Count 141 130-400 10^3/uL Mean Platelet Volume 9.3 9.0-12.2 fL Immature Granulocyte % (Auto) 0 % Neutrophils (%) (Auto) 79 H 42-75 % Lymphocytes (%) (Auto) 12 12-44 % Monocytes (%) (Auto) 8 0-12 % Eosinophils (%) (Auto) 1 0-10 % Basophils (%) (Auto) 0 0-10 % Neutrophils # (Auto) 6.4 1.8-7.8 10^3/uL Lymphocytes # (Auto) 0.9 L 1.0-4.0 10^3/uL Monocytes # (Auto) 0.7 0.0-1.0 10^3/uL Eosinophils # (Auto) 0.1 0.0-0.3 10^3/uL Basophils # (Auto) 0.0 0.0-0.1 10^3/uL Immature Granulocyte # (Auto) 0.0 0.0-0.1 10^3/uL Sodium Level 138 135-145 MMOL/L Potassium Level 4.3 3.6-5.0 MMOL/L Chloride Level 105 98-107 MMOL/L Carbon Dioxide Level 20 L 21-32 MMOL/L Anion Gap 13 5-14 MMOL/L Blood Urea Nitrogen 13 7-18 MG/DL Creatinine 1.12 0.60-1.30 MG/DL Estimat Glomerular Filtration Rate 72 BUN/Creatinine Ratio 12 Glucose Level 133 H 70-105 MG/DL Calcium Level 9.2 8.5-10.1 MG/DL Corrected Calcium 9.4 8.5-10.1 MG/DL Total Bilirubin 0.2 0.1-1.0 MG/DL Aspartate Amino Transf (AST/SGOT) 16 5-34 U/L Alanine Aminotransferase (ALT/SGPT) 12 0-55 U/L Alkaline Phosphatase 61 40-136 U/L Total Protein 6.9 6.4-8.2 GM/DL Albumin 3.7 3.2-4.5 GM/DL LLE--no calf tenderness. Neg Oksana's incision clean and dry s/p LTKA OK to DC froom knee standpoint, await Dr Almodovar recs re MT and appreciate input KELLY FAIRCHILD MD November 06, 2021 07:00
[2021-11-06] MEDS: oxyCODONE/APAP 5/325MG (PERCOCET 5) TABLET PO PRN ×3 (07:42→15:16)
[2021-11-06 08:00] VITALS: BP 155/82
[2021-11-06] MEDS: lisINopril 20 MG (PRINIVIL) TABLET PO SCH (08:00)
[2021-11-06] MEDS: SENNA W/DOCUSATE (SENOKOT S) TABLET PO SCH (08:00)
[2021-11-06] MEDS: DOCUSATE SODIUM 100 MG (COLACE) CAP PO SCH (08:00)
[2021-11-06] MEDS: ENOXAPARIN INJECTION 30 MG/0.3 ML SYR SC SCH (08:04)
[2021-11-06] MEDS ORDERED: TAMSULOSIN 0.4 MG (FLOMAX) CAP PO SCH (09:00)
--- NOTE | 2021-11-06 09:40 | Physical Therapy Daily Note ---
PT Daily Note-Current Subjective Patient agrees to PT. Transfers SCALE: Activities may be completed with or without assistive devices. 3-Ihislybybc-izbebmi completes the activity by him/herself with no assistance from a helper. 5-Set-up or Clean-up Assistance-helper sets up or cleans up; patient completes activity. [place] assists only prior to or following the activity. 4-Supervision or Touching Assistance-helper provides verbal cues and/or touching/steadying and/or contact guard assistance as patient completes activity. Assistance may be provided throughout the activity or intermittently. 3-Partial/Moderate Assistance-helper does LESS THAN HALF the effort. [place] lifts, holds or supports trunk or limbs, but provides less than half the effort. 2-Substantial/Maximal Assistance-helper does MORE THAN HALF the effort. [place] lifts or holds trunk or limbs and provides more than half the effort. 4-Ldgopjhzk-nqbgpf does ALL the effort. Patient does none of the effort to complete the activity. Or, the assistance of 2 or more helpers is required for the patient to complete the activity. If activity was not attempted, code reason: 7-Patient Refused. 9-Not Applicable-not attempted and the patient did not perform the activity before the current illness, exacerbation or injury. 10-Not Attempted due to Environmental Limitations-(lack of equipment, weather restraints, etc.). 88-Not Attempted due to Medical Conditions or Safety Concerns. Lying to Sitting/Side of Bed(Q: 6 Sit to Stand (QC): 6 Chair/Kwd-tu-Eqzri Xfer(QC): 6 Weight Bearing Right Lower Extremity: Right Full Weight Bearing Left Lower Extremity: Left Weight Bearing/Tolerated Gait Training Distance: 300' Walk 10 feet (QC): 6 Walk 50 ft with 2 Turns(QC): 6 Walk 150 ft (QC): 6 Gait Assistive Device: FWW reciprocal pattern/slightly antalgic Exercises Supine Ex: Ankle pumps, Quad Set, Heel Slides, Straight leg raise Supine Reps: 15 Seated Therapy Exercises: Long arc quads Seated Reps: 15 Assessment Patient to dismiss to home on this date. Patient continues to make progress with treatment plan. PT Printer Assistant Goals Mcc Goals PT Printer Assistant Goals Time Frame: November 11, 2021 Roll Left & Right (QC): 6 Sit to Lying (QC): 6 Lying-Sitting on Side/Bed(QC): 6 Sit to Stand (QC): 6 Chair/Zjq-hi-Bipxy Xfer(QC): 6 Toilet Transfer (QC): 6 Walk 10 feet (QC): 6 Walk 50ft with 2 Turns (QC): 6 Walk 150 ft (QC): 6 PT Plan Treatment/Plan Treatment Plan: Discontinue PT, goals met Treatment Plan: Bed Mobility, Education, Functional Activity George, Functional Strength, Gait, Safety, Therapeutic Exercise, Transfers Treatment Duration: November 11, 2021 Frequency: 11 times per week Estimated Hrs Per Day: .25 hour per day Patient and/or Family Agrees t: Yes Time/GCodes Time In: 808 Time Out: 820 Total Billed Treatment Time: 12 Total Billed Treatment 1 visit FA 12 min [place] BARR PT November 06, 2021 09:40
--- NOTE | 2021-11-06 09:41 | Progress Note - Urology ---
Progress Note-Urology Progress Notes/Assess & Plan Progress/Assessment & Plan SALVADOR BACK IN. OK TO DISCHARGE TOUSSAINT ON FLOMAX BID AND [place] FOLLOW UP AT OFFICE NEXT WEEK Final Diagnosis RETENTION LETTY QUIROGA MD November 06, 2021 09:41
--- NOTE | 2021-11-06 10:29 | DISCHARGE SUMMARY ---
DATE OF SERVICE: DIAGNOSES: 1. Left knee primary osteoarthritis. 2. Hypertension. 3. Benign prostatic hypertrophy. 4. Urinary retention. PROCEDURE: Left total knee arthroplasty. SUMMARY: The patient is a 66-year-old gentleman who was admitted on the day of total knee arthroplasty, which he underwent without complications. Postoperatively, he did well. At the time of discharge, his wound was clean and dry. He had no calf tenderness. Negative Homans sign. He was tolerating diet well and tolerating pain with oral pain medication. He did have urinary retention for which, urology was consulted. Followup is in three weeks. ACTIVITIES: Weightbearing as tolerated with a walker. Home physical therapy will be arranged. DISCHARGE MEDICATIONS: Discharge medications are home medications, one aspirin per day for 30 days and Percocet as needed for pain. Job ID: [id number] DocumentID: [id number] Dictated Date: 11/05/2021 18:13:15 Classification Case Manager Date: 11/06/2021 10:28:16 Dictated By: KELYL FAIRCHILD MD
[2021-11-06 18:41] VITALS: BP 141/63
== END 2021-11-06 18:40 | disposition home health service (06) | DRG 470 ==
LOC: 4TH 05:55 → SURG 05:56 → 4TH 10:00
PROVIDERS: ADMIT Orthopaedic Surgery; ATTEND Orthopaedic Surgery
PROC: 0SRD0J9 Replacement of Left Knee Joint with Synthetic Substitute, Cemented, Open Approach (ICD-10-PCS; principal; 2021-11-04 07:32)
DX: M17.12 Unilateral primary osteoarthritis, left knee (principal); I10 Essential (primary) hypertension; N40.1 Benign prostatic hyperplasia with lower urinary tract symptoms; R33.8 Other retention of urine; N31.9 Neuromuscular dysfunction of bladder, unspecified; Z79.899 Other long term (current) drug therapy
CPT/HCPCS: 36415; 73560; 80053; 85014; 85018; 85025; 86850; 86900; 86901; 94664